=== PATIENT | female | born 1955 | race Caucasian/White ===

== ENCOUNTER 2018-02-05 06:06 | Emergency (ER) | payer BC ==
[~2018-02-05] VITALS: Ht 170.2 cm; Wt 68.0 kg
[~2018-02-05 06:06] MED LIST: ASPIRIN EC325 M1 PO; CALCIUM + D SO1 EACH PO; CLONAZEPAM 1 MG1 M1 PO; COUMADIN 4 MG TA4 M1 PO; HYDROCODONE-AC120 ML PO; LANOXIN 0.250.25 M1 PO; LOPRESSOR 50 MG50 M1 PO; PRILOSEC 10MG C10 M1 PO; SIMVASTATIN20 MG PO; ZOFRAN ODT4 MG PO; ZPAK PO
[2018-02-05] MEDS ORDERED: CALCIUM 600 +1 EAC1 PO (06:38)
[2018-02-05] MEDS ORDERED: XANAX1 MG PO (06:38)
[2018-02-05] MEDS ORDERED: COUMADIN 1MG TAB1 M1 PO (06:39)
[2018-02-05 07:05] LABS: ABSOLUTE BASOPHILS 0.1 thou/uL (0.0-0.2); ABSOLUTE LYMPHOCYTES 3.8 thou/uL (0.8-5.3); ABSOLUTE MONOCYTES 0.9 thou/uL (0.0-1.2); ABSOLUTE NEUTROPHILS 5.2 thou/uL (1.6-8.1); BASOPHILS 0.7 %; EOSINOPHILS 0.4 %; LYMPHOCYTES 37.8 %; MCH 31.7 pg (26.0-34.0); MCHC 34.2 g/dL (28.0-37.0); MCV 92.7 fL (80.0-100.0); MONOCYTES 9.1 %; MPV 7.2 fl. (7.2-11.1); NUCLEATED RBCS 0 /100WBC; PLATELET COUNT* 133 thou/uL (150-400); RBC 3.78 mil/uL (4.20-5.00); RDW-CV 15.6 % (10.5-14.5)
[2018-02-05 07:10] LABS: CALCIUM 9.1 mg/dL (8.5-10.1); CREATININE 0.9 mg/dL (0.6-1.3); POTASSIUM 3.6 mmol/L (3.5-5.1)
[2018-02-05 07:10] LABS: URINE BILIRUBIN NEGATIVE (Negative); URINE BLOOD 2+ (Negative); URINE CLARITY CLEAR; URINE COLOR YELLOW; URINE GLUCOSE-RANDOM NEGATIVE (Negative); URINE KETONES NEGATIVE (Negative); URINE LEUKOCYTES-REFLEX NEGATIVE (Negative); URINE NITRITE-REFLEX NEGATIVE (Negative); URINE PROTEIN NEGATIVE (Negative); URINE SPECIFIC GRAVITY <= 1.005 (1.005-1.030); URINE UROBILINOGEN 0.2 E.U./dl (0.2-1.0)
[2018-02-05 07:22] LABS: INR 3.5; PROTIME 35.2 Seconds (9.20-11.50)
[2018-02-05 07:23] LABS: ALBUMIN 3.5 g/dL (3.4-5.0); TOTAL BILIRUBIN 0.8 mg/dL (<0.1-1.0); TOTAL PROTEIN 7.3 g/dL (6.4-8.2)
[2018-02-05 07:31] LABS: RENAL EPITHELIAL CELLS 0-3 Few /LPF (None Seen); SQUAMOUS 0-3 Few /LPF (0-3); URINE WBC-REFLEX 0-5 Rare /HPF (0-5)
[2018-02-05 07:32] LABS: BACTERIA-REFLEX None Seen /HPF (None Seen); CASTS None Seen /LPF (None Seen); CRYSTALS None Seen /LPF (None Seen); MUCUS None Seen strn/LPF (None Seen); URINE RBC 3-10 Few /HPF (0-2)
[2018-02-05 07:42] LABS: INFLUENZA A ANTIGEN None Detected (None Detect); INFLUENZA B ANTIGEN None Detected (None Detect)
[2018-02-05] MEDS ORDERED: TESSALON PERLE100 MG PO (07:59)
[2018-02-05] MEDS ORDERED: DOXYCYCLINE 10100 MG PO (07:59)
[2018-02-05 08:19] VITALS: BP 139/70
== END 2018-02-05 08:23 | disposition home or self-care (01) ==
LOC: M.ERS 06:06
PROVIDERS: Emergency Medicine
DX: R51 Headache (principal); J40 Bronchitis, not specified as acute or chronic; E78.00 Pure hypercholesterolemia, unspecified; I48.91 Unspecified atrial fibrillation; Z90.710 Acquired absence of both cervix and uterus; Z86.711 Personal history of pulmonary embolism; Z88.0 Allergy status to penicillin; Z88.8 Allergy status to other drugs, medicaments and biological substances

== ENCOUNTER 2018-12-31 15:57 | Inpatient (IN) | payer BC ==
[~2018-12-31] VITALS: Ht 170.2 cm; Wt 68.5 kg
[~2018-12-31 15:57] MED LIST changes: +CALCIUM 600 +1 EAC1 PO; +COUMADIN 1MG TAB1 M1 PO; +DOXYCYCLINE 10100 MG PO; +TESSALON PERLE100 MG PO; +XANAX1 MG PO
[2018-12-31 16:12] VITALS: BP 118/91
[2018-12-31] MEDS ORDERED: SIMVASTATIN80 MG PO (16:15)
[2018-12-31] MEDS ORDERED: COUMADIN 5 MG TA5 M1 PO (16:15)
[2018-12-31 16:44] LABS: HEMATOCRIT 41.3 % (37.0-47.0); HEMOGLOBIN 14.4 gm/dL (12.0-15.0); MCH 32.3 pg (26.0-34.0); MCV 92.5 fL (80.0-100.0); MPV 7.8 fl. (7.2-11.1); NUCLEATED RBCS 0 /100WBC; PLATELET COUNT* 223 thou/uL (150-400); RBC 4.47 mil/uL (4.20-5.00); RDW-CV 13.9 % (10.5-14.5); WBC 12.2 thou/uL (4.0-11.0)
[2018-12-31 16:54] LABS: INFLUENZA A ANTIGEN Negative (Negative); INFLUENZA B ANTIGEN Negative (Negative)
[2018-12-31 16:56] LABS: CALCIUM 9.4 mg/dL (8.5-10.1); CREATININE 0.9 mg/dL (0.6-1.3); POTASSIUM 3.5 mmol/L (3.5-5.1)
[2018-12-31 17:06] LABS: ALBUMIN 3.4 g/dL (3.4-5.0); TOTAL BILIRUBIN 0.8 mg/dL (<0.1-1.0); TOTAL PROTEIN 8.2 g/dL (6.4-8.2)
[2018-12-31 17:11] LABS: ABSOLUTE LYMPHOCYTES 2.3 thou/uL (0.8-5.3); ABSOLUTE MONOCYTES 0.2 thou/uL (0.0-1.2); ABSOLUTE NEUTROPHILS 9.6 thou/uL (1.6-8.1); PLATELET ESTIMATE ADEQUATE
[2018-12-31 17:14] LABS: PROTIME 135.6 Seconds (9.20-11.50)
[2018-12-31 17:18] LABS: APTT 88.5 Seconds (25.0-31.3); INR 14.6
[2018-12-31 18:39] LABS: URINE BILIRUBIN NEGATIVE (Negative); URINE BLOOD 3+ (Negative); URINE CLARITY CLEAR; URINE COLOR YELLOW; URINE GLUCOSE-RANDOM NEGATIVE (Negative); URINE KETONES 1+ (Negative); URINE LEUKOCYTES-REFLEX 1+ (Negative); URINE NITRITE-REFLEX NEGATIVE (Negative); URINE PROTEIN 1+ (Negative); URINE SPECIFIC GRAVITY <= 1.005 (1.005-1.030); URINE UROBILINOGEN 0.2 E.U./dl (0.2-1.0)
[2018-12-31 18:44] LABS: SQUAMOUS 0-3 Few /LPF (0-3); URINE WBC-REFLEX 6-15 Few /HPF (0-5)
[2018-12-31 18:45] LABS: BACTERIA-REFLEX >30 Many /HPF (None Seen); CASTS None Seen /LPF (None Seen); CRYSTALS None Seen /LPF (None Seen)
[2018-12-31 19:53] VITALS: BP 133/64
[2018-12-31 20:18] LABS: CALCIUM 8.5 mg/dL (8.5-10.1); CREATININE 0.7 mg/dL (0.6-1.3); MAGNESIUM 2.2 mg/dL (1.8-2.4); POTASSIUM 3.5 mmol/L (3.5-5.1)
[2018-12-31 22:14] VITALS: BP 153/82
[2019-01-01 04:14] LABS: ABSOLUTE LYMPHOCYTES 0.8 thou/uL (0.8-5.3); ABSOLUTE MONOCYTES 0.4 thou/uL (0.0-1.2); ABSOLUTE NEUTROPHILS 10.1 thou/uL (1.6-8.1); BASOPHILS 0.3 %; HEMATOCRIT 38.6 % (37.0-47.0); HEMOGLOBIN 13.1 gm/dL (12.0-15.0); LYMPHOCYTES 6.9 %; MCH 31.7 pg (26.0-34.0); MCV 93.3 fL (80.0-100.0); MONOCYTES 3.3 %; MPV 8.3 fl. (7.2-11.1); NUCLEATED RBCS 0 /100WBC; PLATELET COUNT* 225 thou/uL (150-400); POLYS 89.5 %; RBC 4.14 mil/uL (4.20-5.00); RDW-CV 13.9 % (10.5-14.5); WBC 11.3 thou/uL (4.0-11.0)
[2019-01-01 04:39] LABS: CALCIUM 8.9 mg/dL (8.5-10.1); CREATININE 0.8 mg/dL (0.6-1.3); POTASSIUM 3.4 mmol/L (3.5-5.1)
--- NOTE | 2019-01-01 06:06 | NUR ---
NO FEVER THROUGH NIGHT. SHE HAD SOME ISSUES FALLING ASLEEP GAVE AMBIEN, MELATONIN AND BENADRYL. SHE IS UP AD GISELE TO BATHROOM. HAS BEEN COUGHING FREQUENTLY THROUGH NIGHT. RESPIRATORY HAS GIVEN TREATMENTS. SHE IS REQUESTING COUGH DROPS. PLAN IS FOR MORE IV ABX. WILL CONTINUE PLAN OF CARE.
[2019-01-01 06:30] LABS: PROTIME 155.8 Seconds (9.20-11.50)
[2019-01-01 06:41] LABS: INR 16.9
--- NOTE | 2019-01-01 06:45 | NUR ---
LAB CALLED AT 0640 WITH THE FOLLOWING CRITICAL LABS - INR 16.9 AND PT 155.8 I SENT A MESSAGE TO DR HOUGH AT 0644 WITH THIS INFORMATION
[2019-01-01 09:00] VITALS: BP 125/74
--- NOTE | 2019-01-01 11:04 | EKG ---
[place] [address] ELECTROCARDIOGRAM REPORT Name: ALYSSIA CATBERLY KLARISSA Room: [address] ADM IN ..#: [id number] Admission: 12/31/18 Attend Phys: Sherrie He Discharge: Date of : 53 Report #: [id number] THIS REPORT FOR: //name// [facility] ED Test Date: 2018-12-31 Test Time: 16:44:13 Pat Name: DWIGHT CAT Department: Room: [facility] Gender: F Husker Operator: : 1955 Requested By: Juarez Srinivasan Order Number: [id number] MD: Michael Oneal Measurements Intervals Ceres Rate: 103 P: 99 NY: 208 QRS: 69 QRSD: 85 T: -90 QT: 298 QTc: 390 Interpretive Statements Sinus tachycardia Multiple premature complexes, vent & supraven Borderline prolonged [place] interval Borderline repolarization abnormality No previous ECG available for comparison Electronically Signed On 01-01-2019 11:04:25 DEPUTY REGISTER OF DEEDS by Michael Oneal [email or web address] <ELECTRONICALLY SIGNED> By: Michael Oneal MD, [facility] 01/01/19 1104 1644 1644 Michael Oneal MD, [facility] /EPI
--- NOTE | 2019-01-01 14:21 | CON ---
[facility] [address] [place] [address] CONSULTATION Name: STEPHANIADWIGHT CYR Room: [address] ADM IN .R.#: [id number] Admission: 12/31/18 Attend Phys: Sherrie He Discharge: Date of : 53 Report #: [id number] THIS REPORT FOR: //name// CC: Catherine Stapleton DATE OF SERVICE: 01/01/2019 CARDIOLOGY CONSULTATION HISTORY OF PRESENT ILLNESS: The patient is a 63-year-old white female, who I was asked to see in the hospital today because of her mitral valve replacement. The patient apparently had a history of mitral valve prolapse. She was admitted to [facility] in [address] Hickman apparently attempted mitral valve repair. The repair was unsuccessful and she eventually underwent mitral valve replacement with a metal valve. Apparently after the surgery, she required a MOLLY and developed a tear of the esophagus. She apparently had an episode of atrial fibrillation after the surgery. She has been followed by my partner, Dr. Jayjay Bee. Apparently, in July of this year, she was traveling in [place] and had a small stroke with blurred vision and abnormal gait. Apparently, her INR was 4 at that time. No additional medications were made. She saw Dr. Lester in the Neurology clinic after she returned to [facility] and he suggested she could stop the aspirin. The patient stays very active. Denies recent chest pain, palpitations, syncope, bleeding. Recently, she had been coughing and short of breath. She came to the hospital yesterday and was admitted. She is felt to have pneumonia. Her INR was 14 and I was asked to see her for further evaluation and treatment. She denies any bleeding such as bloody nose, blood in the cough, blood in the stool. PAST MEDICAL HISTORY: She had a previous hysterectomy years ago. Apparently after the hysterectomy, she developed DVT and was on warfarin for a period of time before her valve surgery. She has no history of hypertension, diabetes. She does have a history of hyperlipidemia. MEDICATIONS: Include digoxin, metoprolol, simvastatin and warfarin. ALLERGIES: SHE HAS AN ALLERGY TO PENICILLIN. FAMILY HISTORY: Her mother had heart disease. SOCIAL HISTORY: She is . She and her live in [place]. She is a retired special emotional disabilities teacher. No smoking or alcohol abuse. REVIEW OF SYSTEMS: She has had no history of asthma, peptic ulcer disease. She did have a GI bleed 18 years ago with a dark stool. [place] [address] CONSULTATION Name: DWIGHT CAT Room: [address] IN [facility]#: [id number] Admission: 12/31/18 Attend Phys: Sherrie He Discharge: Date of : 53 Report #: [id number] reverse her INR and apparently took days for the INR to come back up. She has had no further bleeding. No history of kidney disease, cancer, psychiatric illness. PHYSICAL EXAMINATION: GENERAL: Revealed a middle-aged female who appeared in no distress. VITAL SIGNS: She had a blood pressure of 120/70, pulse 70. She is afebrile. HEENT: She was anicteric. Conjunctivae pink. Mucous membranes moist. NECK: Veins do not appear distended. CHEST: Clear to auscultation. CARDIOVASCULAR: Regular rate and rhythm, metallic mitral closing sound. No significant murmur. ABDOMEN: Soft. EXTREMITIES: Had no edema. Posterior tibial pulse 2+ bilaterally. SKIN: Warm and dry. NEUROLOGIC: Nonfocal. RADIOLOGICAL DATA: Her ECG on admission showed a sinus rhythm, occasional PVC, nonspecific ST and T-wave change. Her workup: She actually had an echocardiogram done in September that showed mitral prosthesis, mild mitral regurgitation, no stenosis, mild tricuspid insufficiency. LABORATORY WORK: Sodium 139, potassium 3.4, creatinine 0.8. Her INR is 16.9. White blood cell count 11.3, hemoglobin 13.1. On admission, she had a CT scan of the head without contrast that showed previous lacunar infarction. Chest x-ray showed evidence of previous mitral valve replacement. There are hazy interstitial opacities in the right hilar and infrahilar region suggesting infectious bronchiolitis. IMPRESSION AND RECOMMENDATIONS: 1. Previous mitral valve replacement. Valve appears to be functioning normally. I would maintain an INR of 3-3.5. 2. Over anticoagulation. Since the patient is not bleeding at this time, I think it is reasonable to hold off vitamin K and let the INR come down slowly. 3. Previous episode of atrial fibrillation. The patient is on digoxin and beta uzair. 4. History of stroke. Reason unclear. 5. Previous history of gastrointestinal bleed. 6. Hyperlipidemia. The patient is on a statin drug. <ELECTRONICALLY SIGNED> By: Michael Oneal MD, FACC 01/01/19 1421 1228 [id number] Oneal MD, FACC /nt
[2019-01-01 16:21] VITALS: BP 134/62
--- NOTE | 2019-01-01 16:29 | NUR ---
ASSUMED CARE OF PATIENT AT APPROX 0730. ALERT AND ORIENTED X4. ASSESSMENT COMPLETED AND CHARTED. VSS ON ROOM AIR. NO COMPLAINTS OF PAIN OR SOA. PATIENT ANXIOUS THIS MORNING ABOUT HER INR BEING HIGH AND NOT WANTING TO TAKE VITAMIN K TO REDUCE IT RELATED TO PAST EXPERIENCE. DR BRADEN CONSULTED TO SPEAK WITH PATIENT, NO VITAMIN K RECOMMENDED AT THIS TIME. PATIENT ASKED THAT HER IV BE MOVED FROM HER LEFT AC BECAUSE IT WAS MAKING THE PUMP ALARM ALL NIGHT LONG. IV MOVED TO LEFT HAND AND PATIENT STATED THAT SHE WAS HAPPY WITH THIS. FLUIDS AND SOLUMEDROL INFUSED AND ADMINISTRATED ORDERED. PATIENT UP AD GISELE IN THE ROOM. HOURLY ROUNDS COMPLETED. CALL LIGHT WITHIN REACH. WILL CONTINUE WITH PLAN OF CARE.
--- NOTE | 2019-01-01 17:09 | NUR ---
SW met with pt to complete assessment, introduce self, and SW role. Pt alert, oriented, pleasant. Pt lives at home with . Pt has 3 dtrs who are supportive. Pt does not anticipate any dc needs.
[2019-01-01 20:23] VITALS: BP 134/65
[2019-01-02 04:36] LABS: PROTIME 77.9 Seconds (9.20-11.50)
[2019-01-02 04:42] LABS: INR 8.2
--- NOTE | 2019-01-02 04:44 | NUR ---
JANAK GOMEZ FROM LAB CALLED AT 0442 TO REPORT CRITICAL INR 8.2 THIS TREND OF IMPROVEMENT CONSISTENT WITH PREVIOUS RESULTS
--- NOTE | 2019-01-02 06:08 | NUR ---
PATIENT REPORTED PAIN WHILE COUGHING. SHE RECECIVED COUGH SUPPRESSANT X2 DID REST THROUGHOUT NIGHT AND DID NOT REPORT ANY WORSENING OF CONDITION. SHE DID FEEL NAUSEOUS AND RECEIVED ZOFRAN. STILL UP AD GISELE. INR STILL CRITICAL AT 8.1 BUT TRENDING DOWN WAS 16.9 YESTERDAY. PLAN TO CONTINUE IV ABX. STILL REPORTING WEAKNESS. WILL CONTINUE TO FOLLOW PLAN OF CARE.
[2019-01-02 08:45] VITALS: BP 118/69
[2019-01-02 14:21] VITALS: BP 118/69
[2019-01-02] MEDS ORDERED: KEFLEX500 M2 PO (15:04)
[2019-01-02] MEDS ORDERED: GUAIFENESIN-CO473 ML PO (15:15)
--- NOTE | 2019-01-02 17:11 | NUR ---
PATIENT DISCHARGED FROM UNIT AT 1710. ALERT AND ORIENTED X 4. VITAL SIGNS STABLE ON ROOM AIR. UP INDEPENDENTLY. IV DISCONTINUED. DENIES PAIN AND NAUSEA AT THIS TIME. DISCHARGE INSTRUCTIONS, MEDICATIONS, AND SCRIPTS GIVEN TO PATIENT. LEFT WITH ALL BELONGINGS. PATIENT LEFT WITH SPOUSE VIA CAR.
[2019-01-02 17:14] VITALS: BP 118/69
== END 2019-01-02 17:10 | disposition home or self-care (01) | DRG 871 ==
LOC: M.ERS 15:57 → M.ORTHSURG 18:02 → M.TBA-ER 18:02 → M.ORTHSURG 19:54
PROVIDERS: Family Medicine; ADMIT Internal Medicine
DX: A41.9 Sepsis, unspecified organism (principal); J15.6 Pneumonia due to other Gram-negative bacteria; N39.0 Urinary tract infection, site not specified; E78.00 Pure hypercholesterolemia, unspecified; I48.91 Unspecified atrial fibrillation; E78.5 Hyperlipidemia, unspecified; E11.9 Type 2 diabetes mellitus without complications; F41.9 Anxiety disorder, unspecified; Z86.711 Personal history of pulmonary embolism; Z90.710 Acquired absence of both cervix and uterus; Z86.73 Personal history of transient ischemic attack (TIA), and cerebral infarction without residual deficits; Z88.1 Allergy status to other antibiotic agents; Z88.0 Allergy status to penicillin; Z86.718 Personal history of other venous thrombosis and embolism; Z82.49 Family history of ischemic heart disease and other diseases of the circulatory system; Z95.2 Presence of prosthetic heart valve; Z79.01 Long term (current) use of anticoagulants